=== PATIENT | male | born 1965 | race Caucasian/White ===

== ENCOUNTER 2023-11-27 15:55 | Emergency (ER) | payer SELFPAY ==
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
[2023-11-27 16:00] VITALS: BP 164/91; PULSE 82; RESP 16; TEMP 36.6; O2SAT 91
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
[2023-11-27] MEDS: ondansetron 2 mg/ML SDV 2 mL 4 MG IVP (17:04)
[2023-11-27] MEDS: morphine 4 mg/mL SDV 1 mL IVP (17:04)
[2023-11-27 17:21] VITALS: BP 158/95; PULSE 69; O2SAT 94
== END 2023-11-27 17:23 | disposition home or self-care (01) ==
PROVIDERS: Emergency Provider Emergency Medicine
DX: S39.012A Strain of muscle, fascia and tendon of lower back, initial encounter (principal); S66.911A Strain of unspecified muscle, fascia and tendon at wrist and hand level, right hand, initial encounter; S16.1XXA Strain of muscle, fascia and tendon at neck level, initial encounter; S09.90XA Unspecified injury of head, initial encounter; V89.2XXA Person injured in unspecified motor-vehicle accident, traffic, initial encounter
CPT/HCPCS: 70450; 72125; 72131; 73110; 96374; 96375; 99285; J2270; J2405